=== PATIENT | male | born 1930 | race Caucasian/White ===

== ENCOUNTER 2017-05-06 10:07 | Inpatient (IN) | payer OTHER ==
[~2017-05-06] VITALS: Ht 162.6 cm; Wt 88.7 kg
[2017-05-06] MEDS ORDERED: LISI-660 PO ×2 (10:16→10:23)
[2017-05-06] MEDS ORDERED: NITR.4 SL (10:16)
[2017-05-06] MEDS ORDERED: DONE5TAB PO (10:23)
[2017-05-06] MEDS ORDERED: INSREG SQ (10:23)
[2017-05-06] MEDS ORDERED: CARB-37 PO (10:23)
[2017-05-06] MEDS ORDERED: LEVO50 PO (10:23)
[2017-05-06] MEDS ORDERED: ASPI81 PO (10:23)
[2017-05-06 10:38] LABS: BASOPHILS % (AUTO) 0.8 % (0.0-2.0); EOSINOPHILS % (AUTO) 3.2 % (1.0-6.0); HEMOGLOBIN 14.9 g/dL (13.5-17.5); LYMPHOCYTES % (AUTO) 15.2 % (22.0-44.0); MEAN CORPUSCULAR HEMOGLOBIN 29.6 pg (26.0-34.0); MEAN CORPUSCULAR HGB CONC 33.9 G/dL (31.0-37.0); MEAN CORPUSCULAR VOLUME 87 fL (80-100); MONOCYTES # (AUTO) 0.3 K/uL (0.1-1.0); MONOCYTES % (AUTO) 4.1 % (2.0-9.0); NEUTROPHILS # (AUTO) 4.8 K/uL (1.8-7.7); NEUTROPHILS % (AUTO) 76.7 % (40.0-70.0); PLATELET COUNT (AUTO) 156 K/uL (150-450); RED BLOOD CELL COUNT(AUTO) 5.03 MIL/uL (4.50-5.90); WHITE BLOOD COUNT (AUTO) 6.3 K/uL (4.5-11.0)
[2017-05-06 10:47] LABS: ANION GAP 7 mmol/L (8-16); CALCIUM, TOTAL 9.3 mg/dL (8.8-10.5); CARBON DIOXIDE 23 mmol/L (22-29); CHLORIDE 108 mmol/L (98-107); CREATININE 1.63 mg/dL (0.60-1.30); GLOMERULAR FILTR. RATE CALC 40 mL/min (>60); POTASSIUM 4.9 mmol/L (3.5-5.1); SODIUM SERUM 138 mmol/L (136-145); UREA NITROGEN, BLOOD 23 mg/dL (7-18)
[2017-05-06 10:49] LABS: INR 1.1 (0.9-1.1); PROTHROMBIN TIME 11.3 SEC (9.4-11.6)
[2017-05-06 11:12] LABS: ALANINE AMINOTRANSFERASE 7 U/L (12-78); ALBUMIN 3.7 g/dL (3.4-5.0); ASPARTATE AMINOTRANSFERASE 14 U/L (15-37); BILIRUBIN,TOTAL 1.1 mg/dL (0.1-1.0); CREATINE KINASE MB 1.5 ng/mL (0-5); CREATINE KINASE, TOTAL 87 U/L (39-308); TOTAL PROTEIN, SERUM 6.3 g/dL (6.4-8.2)
[2017-05-06 11:27] LABS: B-TYPE NATRIURETIC PEPTIDE 161 pg/mL (0-100)
[2017-05-06] MEDS ORDERED: ONDANSETRON HCL 4 MG/2 ML VIAL IVP PRN ×2 (13:00→15:00)
[2017-05-06] MEDS ORDERED: ACETAMINOPHEN 325 MG TABLET PO PRN ×2 (13:00→15:00)
[2017-05-06] MEDS ORDERED: 0.9% SODIUM CHLORIDE 10 ML SYRINGE IVP PRN (13:00)
[2017-05-06] MEDS ORDERED: SODIUM CHLORIDE 0.9% 500 ML IV ONE (13:15)
[2017-05-06 14:19] VITALS: BP 120/80
[2017-05-06] MEDS: ASPIRIN 81 MG CHEWABLE TABLET PO SCH (15:00)
[2017-05-06] MEDS: LEVOTHYROXINE SODIUM 50 MCG TABLET PO SCH (15:00)
[2017-05-06] MEDS ORDERED: NITROGLYCERIN 0.4 MG SUBLINGUAL TABLET #25 SL PRN (15:00)
[2017-05-06] MEDS ORDERED: DONEPEZIL HCL 5 MG TABLET PO SCH (15:00)
[2017-05-06] MEDS ORDERED: NITROGLYCERIN 2% (1 GM=INCH) PACKET TP PRN (15:00)
[2017-05-06] MEDS ORDERED: CARBIDOPA/LEVODOPA 10-100 MG TABLET PO SCH (15:00)
[2017-05-06] MEDS: LISINOPRIL 5 MG TABLET PO SCH (15:00)
[2017-05-06 15:20] VITALS: BP 110/79
[2017-05-06] MEDS: HEPARIN SODIUM,PORCINE 5,000 UNITS/ML VIAL SQ SCH ×2 (16:01→23:52)
[2017-05-06] MEDS ORDERED: DEXTROSE 50%-WATER 25 GM/50 ML SYRINGE IVP PRN (17:15)
[2017-05-06] MEDS: INSULIN ASPART 100 UNITS/ML SQ PRN (17:39)
[2017-05-06 19:16] LABS: CREATININE 1.61 mg/dL (0.60-1.30); POTASSIUM 5.4 mmol/L (3.5-5.1)
[2017-05-06 20:08] VITALS: BP 127/49
[2017-05-06] MEDS ORDERED: FOLI400T4 PO (21:26)
[2017-05-06] MEDS ORDERED: UBID100C10 PO (21:26)
[2017-05-06] MEDS ORDERED: PRAV20TA4 PO (21:26)
[2017-05-06] MEDS: OXYGEN THERAPY IH SCH (21:38)
[2017-05-06] MEDS ORDERED: SODIUM POLYSTYRENE SULFONATE 15 GM/60 ML SUSPENSION BOTTLE PO ONE (22:15)
[2017-05-06] MEDS: PRAVASTATIN SODIUM 20 MG TABLET PO SCH (23:52)
[2017-05-06] MEDS: CARBIDOPA/LEVODOPA 25-100 MG TABLET PO SCH (23:53)
[2017-05-06] MEDS: DONEPEZIL HCL 5 MG TABLET PO SCH (23:53)
[2017-05-07] VITALS (7 sets, daily range): BP systolic 111–135; BP diastolic 52–76
[2017-05-07] MEDS: LEVOTHYROXINE SODIUM 50 MCG TABLET PO SCH (05:57)
[2017-05-07 07:09] LABS: BASOPHILS # (AUTO) 0.06 K/uL (0.00-0.20); EOSINOPHILS % (AUTO) 3.18 % (1.0-6.0); HEMATOCRIT 43.3 % (41-53); HEMOGLOBIN 14.2 g/dL (13.5-17.5); LYMPHOCYTES # (AUTO) 1.3 K/uL (1.0-4.8); LYMPHOCYTES % (AUTO) 20.4 % (22.0-44.0); MEAN CORPUSCULAR HEMOGLOBIN 29.7 pg (26.0-34.0); MEAN CORPUSCULAR HGB CONC 32.8 G/dL (31.0-37.0); MEAN CORPUSCULAR VOLUME 90 fL (80-100); MONOCYTES # (AUTO) 0.3 K/uL (0.1-1.0); MONOCYTES % (AUTO) 5.3 % (2.0-9.0); NEUTROPHILS # (AUTO) 4.4 K/uL (1.8-7.7); NEUTROPHILS % (AUTO) 70.2 % (40.0-70.0); PLATELET COUNT (AUTO) 138 K/uL (150-450); RED BLOOD CELL COUNT(AUTO) 4.79 MIL/uL (4.50-5.90); RED CELL DISTRIBUTION WIDTH 14.2 % (11.5-14.5); WHITE BLOOD COUNT (AUTO) 6.3 K/uL (4.5-11.0)
[2017-05-07 07:29] LABS: ALANINE AMINOTRANSFERASE 8 U/L (12-78); ALBUMIN 3.5 g/dL (3.4-5.0); ANION GAP 10 mmol/L (8-16); ASPARTATE AMINOTRANSFERASE 13 U/L (15-37); BILIRUBIN,TOTAL 1.1 mg/dL (0.1-1.0); CALCIUM, TOTAL 8.8 mg/dL (8.8-10.5); CARBON DIOXIDE 22 mmol/L (22-29); CHLORIDE 109 mmol/L (98-107); CREATINE KINASE, TOTAL 66 U/L (39-308); CREATININE 1.54 mg/dL (0.60-1.30); GLOMERULAR FILTR. RATE CALC 43 mL/min (>60); POTASSIUM 4.3 mmol/L (3.5-5.1); SODIUM SERUM 141 mmol/L (136-145); UREA NITROGEN, BLOOD 24 mg/dL (7-18)
[2017-05-07 07:41] LABS: B-TYPE NATRIURETIC PEPTIDE 232 pg/mL (0-100)
[2017-05-07 08:06] LABS: GLUCOSE,POINT OF CARE 127 MG/DL (70-110)
[2017-05-07 08:07] LABS: GLUCOSE,POINT OF CARE 107 MG/DL (70-110)
[2017-05-07] MEDS: LISINOPRIL 5 MG TABLET PO SCH (08:24)
[2017-05-07] MEDS: UBIDECARENONE 100 MG CAPSULE PO SCH (08:24)
[2017-05-07] MEDS: ASPIRIN 81 MG CHEWABLE TABLET PO SCH (08:24)
[2017-05-07] MEDS: HEPARIN SODIUM,PORCINE 5,000 UNITS/ML VIAL SQ SCH ×2 (08:24→15:19)
[2017-05-07] MEDS: VITAMIN B COMPLEX WITH C TABLET PO SCH (08:25)
[2017-05-07] MEDS: CARBIDOPA/LEVODOPA 25-100 MG TABLET PO SCH ×3 (08:25→20:50)
[2017-05-07] MEDS: OXYGEN THERAPY IH SCH ×2 (08:25→20:49)
[2017-05-07] MEDS ORDERED: SODIUM CHLORIDE 0.9% 500 ML IV ONE (10:30)
[2017-05-07] MEDS ORDERED: MAGNESIUM SULFATE 1 GM in DEXTROSE 5%-WATER 50 ML IV ONE (13:45)
[2017-05-07] MEDS: SODIUM CHLORIDE 0.45% 1,000 ML IV SCH (13:51)
[2017-05-07] MEDS ORDERED: PNEUMOCOCCAL VACCINE POLYVALENT 0.5 ML VIAL [PPSV23] IM ONE (14:00)
[2017-05-07] MEDS: ACETYLCYSTEINE 20% 200 MG/ML 4 ML ORAL SOLUTION PO SCH ×2 (15:19→20:50)
[2017-05-07 18:12] LABS: GLUCOSE,POINT OF CARE 111 MG/DL (70-110)
[2017-05-07 18:13] LABS: GLUCOSE,POINT OF CARE 120 MG/DL (70-110)
[2017-05-07] MEDS: PRAVASTATIN SODIUM 20 MG TABLET PO SCH (20:49)
[2017-05-07] MEDS: DONEPEZIL HCL 5 MG TABLET PO SCH (20:50)
[2017-05-08] VITALS (16 sets, daily range): BP systolic 104–156; BP diastolic 67–98
[2017-05-08 05:08] LABS: APPEARANCE,URINE CLEAR (CLEAR); GLUCOSE, URINE (UA) NEGATIVE (NEGATIVE); KETONES,URINE NEGATIVE (NEGATIVE); LEUKOCYTE ESTERASE ,URINE NEGATIVE (NEGATIVE); OCCULT BLOOD,URINE NEGATIVE (NEGATIVE); PROTEIN,URINE POS 1+ (NEGATIVE)
[2017-05-08 05:10] LABS: ADD UA MICROSCOPIC NO
[2017-05-08] MEDS: LEVOTHYROXINE SODIUM 50 MCG TABLET PO SCH (06:03)
[2017-05-08 06:22] LABS: GLUCOSE,POINT OF CARE 129 MG/DL (70-110)
[2017-05-08 07:01] LABS: BASOPHILS # (AUTO) 0.03 K/uL (0.00-0.20); BASOPHILS % (AUTO) 0.5 % (0.0-2.0); EOSINOPHILS # (AUTO) 0.22 K/uL (0.00-0.70); EOSINOPHILS % (AUTO) 3.31 % (1.0-6.0); HEMATOCRIT 45.6 % (41-53); HEMOGLOBIN 15.1 g/dL (13.5-17.5); LYMPHOCYTES # (AUTO) 1.4 K/uL (1.0-4.8); LYMPHOCYTES % (AUTO) 20.8 % (22.0-44.0); MEAN CORPUSCULAR HEMOGLOBIN 29.6 pg (26.0-34.0); MEAN CORPUSCULAR VOLUME 90 fL (80-100); MONOCYTES # (AUTO) 0.4 K/uL (0.1-1.0); MONOCYTES % (AUTO) 6.4 % (2.0-9.0); NEUTROPHILS # (AUTO) 4.5 K/uL (1.8-7.7); NEUTROPHILS % (AUTO) 69.1 % (40.0-70.0); PLATELET COUNT (AUTO) 147 K/uL (150-450); RED BLOOD CELL COUNT(AUTO) 5.09 MIL/uL (4.50-5.90); RED CELL DISTRIBUTION WIDTH 13.9 % (11.5-14.5); WHITE BLOOD COUNT (AUTO) 6.6 K/uL (4.5-11.0)
[2017-05-08 07:09] LABS: PROTHROMBIN TIME 10.7 SEC (9.4-11.6)
[2017-05-08 07:33] LABS: HEMOGLOBIN A1C 6.7 % (4.5-6.2)
[2017-05-08] MEDS ORDERED: IOHEXOL 300 MG/ML 150 ML VIAL ONE (07:40)
[2017-05-08] MEDS ORDERED: HEPARIN SODIUM 1000 UNITS/NS 1,000 ML ONE (07:40)
[2017-05-08] MEDS ORDERED: LIDOCAINE HCL/PF 1% 30 ML VIAL ONE (07:40)
[2017-05-08 07:45] LABS: ANION GAP 11 mmol/L (8-16); CARBON DIOXIDE 22 mmol/L (22-29); CHLORIDE 105 mmol/L (98-107); CHOL/HDL RATIO 2.8 (4.2-7.3); CREATINE KINASE MB 1.5 ng/mL (0-5); CREATINE KINASE, TOTAL 76 U/L (39-308); CREATININE 1.48 mg/dL (0.60-1.30); GLOMERULAR FILTR. RATE CALC 45 mL/min (>60); PHOSPHORUS 2.9 mg/dL (2.5-4.9); POTASSIUM 4.3 mmol/L (3.5-5.1); SODIUM SERUM 138 mmol/L (136-145); THYROID STIMULATING HORMONE 4.18 uIU/mL (0.36-3.74); UREA NITROGEN, BLOOD 26 mg/dL (7-18)
[2017-05-08] MEDS ORDERED: SODIUM BICARBONATE 150 MEQ in DEXTROSE 5%-WATER 850 ML IV ONE (08:00)
[2017-05-08] MEDS: HEPARIN SODIUM,PORCINE 5,000 UNITS/ML VIAL SQ SCH ×4 (08:00→23:25)
[2017-05-08] MEDS ORDERED: MIDAZOLAM HCL 2 MG/2 ML VIAL ONE (08:33)
[2017-05-08] MEDS ORDERED: FentaNYL CITRATE-PF 100 MCG/2 ML VIAL ONE (08:33)
[2017-05-08] MEDS ORDERED: HEPARIN SODIUM 1000 UNITS/NS 1,000 ML IARTER ONE (08:42)
[2017-05-08] MEDS ORDERED: IOHEXOL 300 MG/ML 150 ML VIAL IARTER ONE (08:45)
[2017-05-08] MEDS ORDERED: LIDOCAINE 1% 30 ML/SOD BICARB 8.4% 4 ML SQ ONE (08:45)
[2017-05-08] MEDS ORDERED: IOHEXOL 300 MG/ML 100 ML VIAL ONE (08:46)
[2017-05-08] MEDS: UBIDECARENONE 100 MG CAPSULE PO SCH (09:58)
[2017-05-08] MEDS: VITAMIN B COMPLEX WITH C TABLET PO SCH (09:58)
[2017-05-08] MEDS: CARBIDOPA/LEVODOPA 25-100 MG TABLET PO SCH ×3 (09:58→20:08)
[2017-05-08] MEDS: OXYGEN THERAPY IH SCH ×2 (09:59→20:10)
[2017-05-08 11:22] LABS: GLUCOSE,POINT OF CARE 100 MG/DL (70-110)
[2017-05-08 11:22] LABS: GLUCOSE COMMENT 1 Received Meds; GLUCOSE,POINT OF CARE 157 MG/DL (70-110)
[2017-05-08] MEDS: ASPIRIN 81 MG CHEWABLE TABLET PO SCH (12:03)
[2017-05-08] MEDS: INSULIN ASPART 100 UNITS/ML SQ PRN (12:04)
[2017-05-08] MEDS: SODIUM CHLORIDE 0.45% 1,000 ML IV SCH (17:25)
[2017-05-08] MEDS: DONEPEZIL HCL 5 MG TABLET PO SCH (20:08)
[2017-05-08] MEDS: PRAVASTATIN SODIUM 20 MG TABLET PO SCH (20:08)
[2017-05-09 04:09] VITALS: BP 119/71
[2017-05-09] MEDS: LEVOTHYROXINE SODIUM 50 MCG TABLET PO SCH (05:38)
[2017-05-09] MEDS: SODIUM CHLORIDE 0.45% 1,000 ML IV SCH (05:38)
[2017-05-09 06:27] LABS: GLUCOSE COMMENT 1 Received Meds; GLUCOSE,POINT OF CARE 181 MG/DL (70-110)
[2017-05-09 06:28] LABS: GLUCOSE,POINT OF CARE 154 MG/DL (70-110)
[2017-05-09 06:28] LABS: GLUCOSE,POINT OF CARE 124 MG/DL (70-110)
[2017-05-09 06:28] LABS: GLUCOSE,POINT OF CARE 113 MG/DL (70-110)
[2017-05-09 06:56] LABS: CALCIUM, TOTAL 8.7 mg/dL (8.8-10.5); CREATININE 1.47 mg/dL (0.60-1.30); MAGNESIUM 1.8 mg/dL (1.80-2.40); PHOSPHORUS 2.9 mg/dL (2.5-4.9); POTASSIUM 4.2 mmol/L (3.5-5.1)
[2017-05-09 07:15] VITALS: BP 120/70
[2017-05-09] MEDS: ASPIRIN 81 MG CHEWABLE TABLET PO SCH (09:27)
[2017-05-09] MEDS: CARBIDOPA/LEVODOPA 25-100 MG TABLET PO SCH (09:34)
[2017-05-09] MEDS: UBIDECARENONE 100 MG CAPSULE PO SCH (09:34)
[2017-05-09] MEDS: OXYGEN THERAPY IH SCH (09:35)
[2017-05-09] MEDS: VITAMIN B COMPLEX WITH C TABLET PO SCH (09:35)
[2017-05-09 11:29] VITALS: BP 125/78
== END 2017-05-09 13:20 | disposition home or self-care (01) | DRG 287 ==
LOC: EMS 10:09 → 5S 13:11
PROVIDERS: ADMIT Family Medicine; ATTEND Family Medicine
PROC: 4A023N7 Measurement of Cardiac Sampling and Pressure, Left Heart, Percutaneous Approach (ICD-10-PCS; principal; 2017-05-08)
PROC: B2111ZZ Fluoroscopy of Multiple Coronary Arteries using Low Osmolar Contrast (ICD-10-PCS; 2017-05-08)
PROC: B41F1ZZ Fluoroscopy of Right Lower Extremity Arteries using Low Osmolar Contrast (ICD-10-PCS; 2017-05-08)
PROC: B2181ZZ Fluoroscopy of Left Internal Mammary Bypass Graft using Low Osmolar Contrast (ICD-10-PCS; 2017-05-08)
DX: I24.9 Acute ischemic heart disease, unspecified (principal); I25.119 Atherosclerotic heart disease of native coronary artery with unspecified angina pectoris; E11.22 Type 2 diabetes mellitus with diabetic chronic kidney disease; G20 Parkinson's disease; I12.9 Hypertensive chronic kidney disease with stage 1 through stage 4 chronic kidney disease, or unspecified chronic kidney disease; N18.9 Chronic kidney disease, unspecified; E03.9 Hypothyroidism, unspecified; E78.5 Hyperlipidemia, unspecified; E83.42 Hypomagnesemia; N28.1 Cyst of kidney, acquired; Z79.4 Long term (current) use of insulin; Z95.1 Presence of aortocoronary bypass graft; Z95.5 Presence of coronary angioplasty implant and graft; Z82.49 Family history of ischemic heart disease and other diseases of the circulatory system
CPT/HCPCS: 76770; 82962; 83036; 83735; 84100; 84443; 93005; 93306; 93459; 93567; 97116; 97161; 97165; 99285; J1644; J2250; J3010; J3475; J3490; J7040; J7060; Q9967

== ENCOUNTER 2017-09-21 22:17 | Emergency (ER) | payer OTHER ==
[~2017-09-21] VITALS: Ht 162.6 cm; Wt 75.0 kg
[~2017-09-21 22:17] MED LIST: ASPI81 PO; CARB-37 PO; DONE5TAB5 PO; FOLI400T4 PO; INSREG SQ; LEVO50 PO; LISI-660 PO; NITR.4 SL; PRAV20TA4 PO; UBID100C10 PO
[2017-09-21] MEDS ORDERED: ISOS30TA6 PO (22:28)
[2017-09-21] MEDS ORDERED: CARV3 PO (22:28)
[2017-09-21 22:42] LABS: BASOPHILS # (AUTO) 0.07 K/uL (0.00-0.20); BASOPHILS % (AUTO) 1.1 % (0.0-2.0); EOSINOPHILS # (AUTO) 0.33 K/uL (0.00-0.70); HEMATOCRIT 43.5 % (41-53); HEMOGLOBIN 14.5 g/dL (13.5-17.5); LYMPHOCYTES # (AUTO) 1.3 K/uL (1.0-4.8); LYMPHOCYTES % (AUTO) 18.1 % (22.0-44.0); MEAN CORPUSCULAR HGB CONC 33.3 G/dL (31.0-37.0); MEAN CORPUSCULAR VOLUME 90 fL (80-100); MONOCYTES # (AUTO) 0.4 K/uL (0.1-1.0); MONOCYTES % (AUTO) 5.8 % (2.0-9.0); NEUTROPHILS # (AUTO) 4.9 K/uL (1.8-7.7); NEUTROPHILS % (AUTO) 70.4 % (40.0-70.0); PLATELET COUNT (AUTO) 147 K/uL (150-450); RED BLOOD CELL COUNT(AUTO) 4.83 MIL/uL (4.50-5.90); RED CELL DISTRIBUTION WIDTH 14.3 % (11.5-14.5)
[2017-09-21 22:50] LABS: INR 1.1 (0.9-1.1); PROTHROMBIN TIME 11.4 SEC (9.4-11.6)
[2017-09-21 22:55] LABS: CALCIUM, TOTAL 8.6 mg/dL (8.8-10.5); CREATININE 1.49 mg/dL (0.60-1.30); POTASSIUM 4.4 mmol/L (3.5-5.1)
[2017-09-21 22:59] LABS: APPEARANCE,URINE CLEAR (CLEAR); GLUCOSE, URINE (UA) NEGATIVE (NEGATIVE); KETONES,URINE NEGATIVE (NEGATIVE); LEUKOCYTE ESTERASE ,URINE NEGATIVE (NEGATIVE); OCCULT BLOOD,URINE NEGATIVE (NEGATIVE); PROTEIN,URINE SEE CONFIRM (NEGATIVE)
[2017-09-21 23:01] LABS: ALBUMIN 3.8 g/dL (3.4-5.0); BILIRUBIN,TOTAL 0.6 mg/dL (0.1-1.0); TOTAL PROTEIN, SERUM 6.6 g/dL (6.4-8.2)
[2017-09-21 23:46] LABS: ADD UA MICROSCOPIC YES; SULFOSALICYLIC ACID,URINE 1+ (Negative)
[2017-09-21 23:47] LABS: RBC,URINE 0-2 /HPF (0-2); WBC,URINE None Seen /HPF (0-5)
[2017-09-22] MEDS ORDERED: NITROGLYCERIN 2% (1 GM=INCH) PACKET TP ONE (03:00)
[2017-09-22 03:44] VITALS: BP 167/92
== END 2017-09-22 04:20 | disposition short-term general hospital (02) ==
LOC: EMS 22:19 → 5S 09-22 01:05 → UNDOADMIN 09-22 01:05
DX: G45.9 Transient cerebral ischemic attack, unspecified (principal); R07.9 Chest pain, unspecified; E11.9 Type 2 diabetes mellitus without complications; E78.00 Pure hypercholesterolemia, unspecified; I10 Essential (primary) hypertension; E03.9 Hypothyroidism, unspecified; Z79.4 Long term (current) use of insulin
CPT/HCPCS: 70450; 93005; 99291